=== PATIENT | male | born 1995 | race Caucasian/White ===

== ENCOUNTER → 2020-06-28 | Outpatient (CLI) | payer OTHER ==
[~2020-06-28] MED LIST: OMNIPAQUE 350 MG/ML, 100ML BOTTLE ONE
== END | disposition home or self-care (01) ==
LOC: RAD 16:51
PROVIDERS: ATTEND Family Medicine
DX: K76.9 Liver disease, unspecified (principal); K56.1 Intussusception; R10.819 Abdominal tenderness, unspecified site
CPT/HCPCS: 74177; Q9967